=== PATIENT | female | born 1960 | race Caucasian/White ===

== ENCOUNTER → 2019-05-10 | Outpatient (CLI) | payer OTHER | LOC: CAT 10:56 | DX: Z13.6 Encounter for screening for cardiovascular disorders (principal); E78.00 Pure hypercholesterolemia, unspecified; I25.10 Atherosclerotic heart disease of native coronary artery without angina pectoris ==

== ENCOUNTER → 2020-01-13 | Outpatient (CLI) | payer BC, OTHER | LOC: MRI 06:56 | DX: M54.6 Pain in thoracic spine (principal) ==